=== PATIENT | female | born 1985 | race Caucasian/White ===

== ENCOUNTER 2018-01-07 08:00 | Outpatient (CLI) | payer OTHER | END 2018-01-07 08:01 | disposition home or self-care (01) | LOC: LAB.R 08:00 | PROVIDERS: ATTEND Registered Nurse | DX: Z11.3 Encounter for screening for infections with a predominantly sexual mode of transmission (principal) | CPT/HCPCS: 87491; 87591 ==

== ENCOUNTER 2018-02-24 09:39 | Outpatient (CLI) | payer OTHER ==
[2018-02-24 10:44] LABS: HB2 TOTAL 14.5 g/dL; HEMOGLOBIN A1C 0.41 g/dL; HEMOGLOBIN A1C % 4.7 % (4.6-6.2)
[2018-02-24 11:04] LABS: THYROID STIMULATING HORMONE 1.21 uIU/mL (0.34-5.60)
[2018-02-24 11:32] LABS: FOLLICLE STIMULATING HORMONE 3.38 mIU/mL
[2018-02-24 11:33] LABS: LUTEINIZING HORMONE 4.07 mIU/mL
[2018-02-25 10:22] LABS: ESTRADIOL 114 pg/mL
[2018-03-01 00:01] LABS: DHEA SULFATE 121 mcg/dL (23-266)
== END 2018-02-24 09:40 | disposition home or self-care (01) ==
LOC: LAB 09:39
PROVIDERS: ATTEND Registered Nurse
DX: N97.8 Female infertility of other origin (principal)
CPT/HCPCS: 36415; 81599; 82627; 82670; 83001; 83002; 83036; 84402; 84403; 84443

== ENCOUNTER 2018-03-23 15:16 | Outpatient (CLI) | payer OTHER | END 2018-03-23 15:17 | disposition home or self-care (01) | LOC: LAB 15:16 | PROVIDERS: ATTEND Registered Nurse | DX: N97.8 Female infertility of other origin (principal) | CPT/HCPCS: 36415; 84144 ==

== ENCOUNTER 2018-10-17 17:42 | Outpatient (CLI) | payer OTHER ==
--- NOTE | 2018-10-18 00:54 | Ultrasound Report ---
Reason: TEST POSITIVE Procedure Date: 10/17/2018 Accession Number: [id number] / [id number] Procedure: US - OB First Trimester CPT Code: FULL RESULT: EXAM: FIRST TRIMESTER OBSTETRIC ULTRASOUND (Less than 11 weeks) EXAM DATE: 10/17/2018 06:36 PM. CLINICAL HISTORY: test positive. LMP: 08/01/2018?. COMPARISONS: None. TECHNIQUE: Transabdominal and transvaginal ultrasound examination with static image documentation. CLINICAL DATES: EGA 11 weeks 0 days with DEVORA 05/08/2019 based on suggested LMP. ASSESSMENT: Gestational Sac: Single intrauterine. Mean gestational sac diameter: 17.6 mm = 6 weeks 1 day. Embryo: No pole visualized. Yolk sac: 4 mm. Amniotic fluid: Not accurately assessed at this gestational age. Early placenta: Not visible at this gestational age. Other: No perigestational fluid collection demonstrated. MATERNAL STRUCTURES: Uterus: Anteverted. Unremarkable. Cervix: Closed. Right Ovary/Adnexa: The ovary measures 4 x 2.3 x 3.1 cm, volume 14.6 cc. Unremarkable. Left Ovary/Adnexa: Not visualized. Free Fluid: None. Other: None. IMPRESSION: 1. Intrauterine gestational sac with no measurable pole. This may be due to early gestational age versus blighted ovum. Correlation with serial beta hCG and follow-up ultrasound in 10-14 days recommended. RADIA
== END 2018-10-17 17:43 | disposition home or self-care (01) ==
LOC: DI 17:42
PROVIDERS: ATTEND Obstetrics & Gynecology
DX: Z32.01 Encounter for pregnancy test, result positive (principal)
CPT/HCPCS: 76801

== ENCOUNTER 2018-10-31 17:35 | Outpatient (CLI) | payer OTHER | END 2018-10-31 17:36 | disposition home or self-care (01) | LOC: LAB 17:35 | PROVIDERS: ATTEND Obstetrics & Gynecology | DX: O36.80X0 Pregnancy with inconclusive fetal viability, not applicable or unspecified (principal) | CPT/HCPCS: 84702 ==

== ENCOUNTER 2018-11-18 10:00 | Outpatient (CLI) | payer OTHER ==
--- NOTE | 2018-11-18 11:24 | Ultrasound Report ---
Reason: UNCERTAIN VIABILITY OF Procedure Date: 11/18/2018 Accession Number: [id number] / [id number] Procedure: US - OB First Trimester CPT Code: FULL RESULT: EXAM: FIRST TRIMESTER OBSTETRIC ULTRASOUND (Less than 11 weeks) EXAM DATE: 11/18/2018 10:59 AM. CLINICAL HISTORY: Uncertain viability of . LMP: 08/01/2018. COMPARISONS: 10/17/2018. TECHNIQUE: Transabdominal and transvaginal ultrasound examination with static image documentation. CLINICAL DATES: EGA 10 weeks 3 days with DEVORA 06/13/2019 based on physician stated. ASSESSMENT: Gestational Sac: Single intrauterine. Mean gestational sac diameter: 58.5 mm = greater than 10 weeks. Embryo: CRL (crown-rump length) 42.6 mm = 11 weeks 1 day. Cardiac activity: 166 beats per minute. Yolk sac: 5.6 mm. Amniotic fluid: Subjectively normal. Early placenta: Posterior. Other: No perigestational fluid collection demonstrated. MATERNAL STRUCTURES: Uterus: Anteverted. Unremarkable. Cervix: Closed. Right Ovary/Adnexa: The ovary measures 3.4 x 2.3 x 3.0 cm, volume 12.2 cc. Contains a 1.7 cm unilocular cyst. Left Ovary/Adnexa: The ovary measures 2.8 x 1.4 x 2.7 cm, volume 5.5 cc. Unremarkable. Free Fluid: None. Other: None. IMPRESSION: 1. Single viable intrauterine at EGA 11 weeks 1 day with DEVORA 06/08/2019 based on crown-rump length, which is concordant with clinical dates and prior ultrasound. 2. Assigned dating is DEVORA 10 weeks 3 days based on physician stated. RADIA
== END 2018-11-18 10:01 | disposition home or self-care (01) ==
LOC: DI 10:00
PROVIDERS: ATTEND Obstetrics & Gynecology
DX: O36.80X0 Pregnancy with inconclusive fetal viability, not applicable or unspecified (principal); Z3A.11 11 weeks gestation of pregnancy
CPT/HCPCS: 76801

== ENCOUNTER 2018-11-22 18:00 | Outpatient (CLI) | payer OTHER ==
[2018-11-22 18:15] LABS: MUDS CUTOFF CONCENTRATIONS CUTOFF CONC BELOW:
[2018-11-22 18:35] LABS: BASOPHILS % (AUTO) 0.5 %; EOSINOPHILS # (AUTO) 0.1 10^3/uL (0.0-0.7); EOSINOPHILS % (AUTO) 1.3 %; HGB - HEMOGLOBIN 11.8 g/dL (12.0-16.0); LYMPHOCYTES # (AUTO) 1.7 10^3/uL (1.5-3.5); LYMPHOCYTES % (AUTO) 21.8 %; MEAN CORPUSCULAR HEMOGLOBIN 31.7 pg (27.0-31.0); MEAN CORPUSCULAR VOLUME 90.6 fL (81.0-99.0); MEAN PLATELET VOLUME 9.1 fL (7.9-10.8); MONOCYTES # (AUTO) 0.6 10^3/uL (0.0-1.0); MONOCYTES % (AUTO) 7.9 %; NEUTROPHILS # (AUTO) 5.4 10^3/uL (1.5-6.6); NEUTROPHILS % (AUTO) 68.5 %; PLT - PLATELET COUNT 207 10^3/uL (130-450); RED BLOOD COUNT 3.72 10^6/uL (4.20-5.40); RED CELL DISTRIBUTION WIDTH 12.5 % (12.0-15.0); WHITE BLOOD COUNT 7.9 x10^3/uL (4.8-10.8)
[2018-11-22 18:38] LABS: BILIRUBIN,URINE NEGATIVE (NEGATIVE); GLUCOSE, URINE (UA) NEGATIVE (NEGATIVE); KETONES,URINE (UA) 15 mg/dL (NEGATIVE); LEUKOCYTE ESTERASE, URINE NEGATIVE (NEGATIVE); NITRITE,URINE NEGATIVE (NEGATIVE); OCCULT BLOOD,URINE NEGATIVE (NEGATIVE); PROTEIN,URINE NEGATIVE (NEGATIVE); UROBILINOGEN,URINE 0.2 (NORMAL) E.U./dL (NORMAL)
[2018-11-22 18:42] LABS: CLARITY,URINE CLEAR (CLEAR)
[2018-11-22 18:45] LABS: BACTERIA,URINE Few /HPF (None Seen); RBC,URINE None Seen /HPF (0-5); SQUAMOUS EPITHELIAL CELL,UR MOD Squamous (<= Few)
[2018-11-22 18:57] LABS: AMPHETAMINE SCREEN,URINE NEGATIVE (NEGATIVE); BENZODIAZEPINES SCREEN, URINE NEGATIVE (NEGATIVE); COCAINE SCREEN URINE NEGATIVE (NEGATIVE); METHADONE SCREEN, URINE NEGATIVE (NEGATIVE); METHAMPHETAMINES SCREEN, URINE NEGATIVE (NEGATIVE); OPIATE SCREEN, URINE NEGATIVE (NEGATIVE); OXYCODONE SCREEN, URINE NEGATIVE (NEGATIVE); PROPOXYPHENE SCREEN, URINE NEGATIVE (NEGATIVE); TRICYCLIC ANTIDEPRESSANT,URINE NEGATIVE (NEGATIVE)
[2018-11-23 13:38] LABS: HEPATITIS B SURFACE ANTIGEN NON-REACTIVE (NON-REACTIVE); HEPATITIS C ANTIBODY NON-REACTIVE (NON-REACTIVE)
[2018-11-23 14:42] LABS: HIV AG/AB 4TH GEN NON-REACTIVE (NON-REACTIVE)
== END 2018-11-22 18:01 | disposition home or self-care (01) ==
LOC: LAB 18:00
PROVIDERS: ATTEND Obstetrics & Gynecology
DX: Z36.89 Encounter for other specified antenatal screening (principal); Z33.1 Pregnant state, incidental
CPT/HCPCS: 36415; 80306; 81001; 81599; 85025; 86592; 86762; 86787; 86803; 86850; 86900; 86901; 87086; 87340; 87389; 87491; 87591

== ENCOUNTER 2018-11-25 13:32 | Outpatient (CLI) | payer SELFPAY | END 2018-11-25 13:33 | disposition home or self-care (01) | LOC: LAB 13:32 | PROVIDERS: ATTEND Obstetrics & Gynecology | DX: Z36.89 Encounter for other specified antenatal screening (principal) | CPT/HCPCS: 36415 ==

== ENCOUNTER 2019-01-09 18:19 | Outpatient (CLI) | payer OTHER | END 2019-01-09 18:20 | disposition home or self-care (01) | LOC: LAB 18:19 | PROVIDERS: ATTEND Obstetrics & Gynecology | DX: Z36.0 Encounter for antenatal screening for chromosomal anomalies (principal) | CPT/HCPCS: 36415; 81599; 82105 ==

== ENCOUNTER 2019-01-20 13:21 | Outpatient (CLI) | payer OTHER ==
--- NOTE | 2019-01-23 14:41 | Ultrasound Report ---
Reason: SCREENING Procedure Date: 01/20/2019 Accession Number: [id number] / [id number] Procedure: US - OB Detailed Eval CPT Code: FULL RESULT: EXAM: COMPLETE OBSTETRICAL ULTRASOUND EXAM DATE: 01/20/2019 02:30 PM. CLINICAL HISTORY: anatomic survey. COMPARISON: OB FIRST TRIMESTER 11/18/2018 10:13 AM. TECHNIQUE: Real-time sonographic evaluation of the fetus performed by the cold press operator. Multiple customer service representative teacher static images were saved for review. DATING: Established EGA 20 weeks 2 days with DEVORA 06/07/2019 based on working due date. EGA 20 weeks 0 days with DEVORA 06/09/2019 based on the current ultrasound. GENERAL EVALUATION [place] . Cardiac activity: 148 bpm. movement: Visualized. Presentation: Transverse Placenta: Posterior position. No evidence for previa. Umbilical cord: 3 vessel cord. Central placental cord origin. Amniotic fluid: Subjectively normal. MVP 4.1 cm. BIOMETRY Bi-Parietal Diameter (BPD): 4.6 cm, 19 weeks 6 days Head Circumference (HC): 17.1 cm, 19 weeks 5 days Abdominal Circumference (AC): 15.2 cm, 20 weeks 3 days Femur Length (FL): 3.2 cm, 20 weeks 0 days Estimated Weight: 339 g, 41st percentile for 20 weeks 2 days. ANATOMY The intracranial structures, profile, face/nose/lips, spine, 4 chamber heart and outflow tracts, stomach, abdominal wall and cord insertion, diaphragm, kidneys, bladder, and extremities were visualized and demonstrate no abnormality. MATERNAL STRUCTURES Uterus: Unremarkable. Cervix: Long and closed. Transabdominal length 4.4 cm. Right ovary/adnexa: Unremarkable. Left ovary/adnexa: Unremarkable. Free fluid: None. IMPRESSION: 1. Portillo live intrauterine with gestational age 20 weeks 2 days based on working due date. 2. Estimated weight is within expected limits for assigned dating. 3. Normal anatomic survey. No anatomic abnormalities are detected at this time. RADIA
== END 2019-01-20 13:22 | disposition home or self-care (01) ==
LOC: DI 13:21
PROVIDERS: ATTEND Obstetrics & Gynecology
DX: Z36.89 Encounter for other specified antenatal screening (principal)
CPT/HCPCS: 76811

== ENCOUNTER 2019-02-23 09:31 | Outpatient (CLI) | payer OTHER ==
[2019-02-23 11:10] LABS: HGB - HEMOGLOBIN 11.5 g/dL (12.0-16.0); MEAN CORPUSCULAR HEMOGLOBIN 30.7 pg (27.0-31.0); MEAN CORPUSCULAR HGB CONC 32.3 g/dL (32.0-36.0); MEAN CORPUSCULAR VOLUME 95.2 fL (81.0-99.0); MEAN PLATELET VOLUME 10.4 fL (7.9-10.8); RED BLOOD COUNT 3.74 10^6/uL (4.20-5.40); RED CELL DISTRIBUTION WIDTH 12.7 % (12.0-15.0); WHITE BLOOD COUNT 8.4 x10^3/uL (4.8-10.8)
== END 2019-02-23 23:59 | disposition home or self-care (01) ==
LOC: LAB 09:31
PROVIDERS: ATTEND Obstetrics & Gynecology
DX: O09.92 Supervision of high risk pregnancy, unspecified, second trimester (principal)
CPT/HCPCS: 36415; 82950; 85027; 86850

== ENCOUNTER → 2019-05-10 | Outpatient (CLI) | payer OTHER ==
[2019-05-10 20:53] LABS: CANDIDA GROUP DNA POSITIVE (NEGATIVE); CANDIDA KRUSEI DNA NEGATIVE (NEGATIVE); TRICHOMONAS VAGINALIS DNA NEGATIVE (NEGATIVE)
[2019-05-10 21:49] LABS: TRICHOMONAS VAGINALIS DNA NEGATIVE (NEGATIVE)
== END ==
LOC: LAB.R 08:00
PROVIDERS: ATTEND Nurse Practitioner Obstetrics & Gynecology
DX: Z36.85 Encounter for antenatal screening for Streptococcus B (principal); Z11.3 Encounter for screening for infections with a predominantly sexual mode of transmission; N76.0 Acute vaginitis
CPT/HCPCS: 87491; 87591; 87661; 87797; 87801

== ENCOUNTER 2019-06-01 16:43 | Outpatient (CLI) | payer OTHER ==
--- NOTE | 2019-06-05 10:04 | Ultrasound Report ---
Reason: LARGE FOR GESTATIONAL AGE FETUS, 3RD TRIMESTER Procedure Date: 06/01/2019 Accession Number: [id number] / [id number] Procedure: US - OB F/U or Repeat CPT Code: FULL RESULT: EXAM: FOLLOW-UP OBSTETRICAL ULTRASOUND EXAM DATE: 06/01/2019 05:16 PM. CLINICAL HISTORY: LARGE FOR GESTATIONAL AGE FETUS, 3RD TRIMESTER. COMPARISON: 01/20/2019. TECHNIQUE: Real-time sonographic evaluation of the fetus performed by the rip/mould operator. Additional transvaginal imaging to more accurately evaluate cervical length/placental position/etc. Multiple telephone service representative static images were saved for review. DATING: Established EGA 39 weeks 1 day with DEVORA 06/07/2019 based on LMP. EGA 39 weeks 0 days with DEVORA 06/08/2019 based on prior ultrasound. EGA 37 weeks 5 days with DEVORA 06/17/2019 based on the current ultrasound. GENERAL EVALUATION [place] . Cardiac activity: 145 bpm. movement: Visualized. Presentation: Breech Placenta: Posterior position. Amniotic fluid: Normal. FIDENCIO 11.7 cm. MVP 4.1 cm. BIOMETRY Bi-Parietal Diameter (BPD): 9.4 cm, 38 weeks 3 days Head Circumference (HC): 36.2 cm, 38 weeks 6 days Abdominal Circumference (AC): 34.3 cm, 38 weeks 6 days Femur Length (FL): 7.2 cm, 36 weeks 4 days Estimated Weight: 3474 g, 57.7 percentile. ANATOMY Limited anatomic evaluation. MATERNAL STRUCTURES The cervix is closed with cervical length 5.3 cm IMPRESSION: 1. Portillo live intrauterine with gestational age 37 weeks 5 days based on current ultrasound. Fetus is in BREECH position. 2. Estimated weight is within expected limits for assigned dating. 3. On the previous 01/20/2019 examination, the DEVORA was 06/09/2019. The current DEVORA is 06/17/2019. SUZIE
== END 2019-06-01 16:44 | disposition home or self-care (01) ==
LOC: DI 16:43
PROVIDERS: ATTEND Obstetrics & Gynecology
DX: O36.63X0 Maternal care for excessive fetal growth, third trimester, not applicable or unspecified (principal); Z3A.37 37 weeks gestation of pregnancy
CPT/HCPCS: 76816

== ENCOUNTER 2019-06-07 04:58 | Inpatient (IN) | payer OTHER ==
[2019-06-07] MEDS ORDERED: SODIUM CHLORIDE FLUSH 0.9% 10 ML SYRINGE ONE (05:31)
[2019-06-07] MEDS ORDERED: CITRIC ACID/SODIUM CITRATE 15 ML UDC PO ONE (05:48)
[2019-06-07 05:56] LABS: BILIRUBIN,URINE NEGATIVE (NEGATIVE); GLUCOSE, URINE (UA) NEGATIVE (NEGATIVE); KETONES,URINE (UA) TRACE mg/dL (NEGATIVE); LEUKOCYTE ESTERASE, URINE NEGATIVE (NEGATIVE); NITRITE,URINE NEGATIVE (NEGATIVE); OCCULT BLOOD,URINE NEGATIVE (NEGATIVE); PROTEIN,URINE NEGATIVE (NEGATIVE); UROBILINOGEN,URINE 0.2 (NORMAL) E.U./dL (NORMAL)
[2019-06-07 05:57] LABS: CLARITY,URINE CLEAR (CLEAR)
[2019-06-07] MEDS ORDERED: SODIUM CHLORIDE FLUSH 0.9% 10 ML SYRINGE IVP PRN ×2 (05:59→09:20)
[2019-06-07] MEDS ORDERED: LACTATED RINGERS 1,000 ML IV SCH ×2 (06:00→10:00)
[2019-06-07] MEDS ORDERED: ceFAZolin 2 GM in SODIUM CHLORIDE 0.9% 100ML 100 ML IV SCH (06:00)
[2019-06-07 06:02] LABS: BACTERIA,URINE Few /HPF (None Seen); RBC,URINE None Seen /HPF (0-5); SQUAMOUS EPITHELIAL CELL,UR MOD Squamous (<= Few)
[2019-06-07 06:11] LABS: BASOPHILS % (AUTO) 0.2 %; EOSINOPHILS # (AUTO) 0.1 10^3/uL (0.0-0.7); HGB - HEMOGLOBIN 11.7 g/dL (12.0-16.0); LYMPHOCYTES # (AUTO) 1.7 10^3/uL (1.5-3.5); LYMPHOCYTES % (AUTO) 17.9 %; MEAN CORPUSCULAR HEMOGLOBIN 32.1 pg (27.0-31.0); MEAN CORPUSCULAR HGB CONC 34.8 g/dL (32.0-36.0); MEAN CORPUSCULAR VOLUME 92.1 fL (81.0-99.0); MEAN PLATELET VOLUME 9.8 fL (7.9-10.8); MONOCYTES # (AUTO) 0.6 10^3/uL (0.0-1.0); MONOCYTES % (AUTO) 6.7 %; NEUTROPHILS # (AUTO) 6.8 10^3/uL (1.5-6.6); NEUTROPHILS % (AUTO) 73.5 %; PLT - PLATELET COUNT 196 10^3/uL (130-450); RED BLOOD COUNT 3.65 10^6/uL (4.20-5.40); RED CELL DISTRIBUTION WIDTH 13.7 % (12.0-15.0); WHITE BLOOD COUNT 9.2 x10^3/uL (4.8-10.8)
[2019-06-07 06:18] LABS: PT - PROTHROMBIN TIME 11.9 secs (9.9-12.6)
[2019-06-07 06:25] LABS: PARTIAL THROMBOPLASTIN TIME 27.6 secs (24.9-33.3)
--- NOTE | 2019-06-07 07:19 | ANESTHESIA ---
Pre-Anesthesia VS, & Labs - Diagnosis breech presentation - Procedure section Vital Signs: Temp Pulse Resp BP Pulse Ox 36.6 C 80 16 124/69 100 06/07/19 06:53 06/07/19 06:53 06/07/19 06:53 06/07/19 06:53 06/07/19 06:53 Height 5 ft 4 in Weight (kg) 109.316 kg - NPO >8 hours - Is Patient ?: Yes - Lab Results Current Lab Results: Laboratory Tests 06/07/19 06:00: Blood Type A POSITIVE, Antibody Screen NEGATIVE 06/07/19 06:00: PT 11.9, INR 1.0, APTT 27.6 06/07/19 06:00: WBC 9.2, RBC 3.65 L, Hgb 11.7 L, Hct 33.6 L, MCV 92.1, MCH 32.1 H, MCHC 34.8, RDW 13.7, Plt Count 196, MPV 9.8, Neut # (Auto) 6.8 H, Lymph # (Auto) 1.7, [place] # (Auto) 0.6, Eos # (Auto) 0.1, Baso # (Auto) 0.0, Absolute Nucleated RBC 0.00, Nucleated RBC % 0.0 Lab results reviewed: Yes Fish Bones: 06/07/19 06:00 Home Medications and Allergies Active Medications Cefazolin Sodium 2 gm/ Sodium (Chloride) 100 mls @ 200 mls/hr IV ONCE TERRENCE Stop: 06/07/19 11:00 Lactated Ringer's (Lr) 1,000 mls @ 125 mls/hr IV .Q8H TERRENCE Last Admin: 06/07/19 06:10 Dose: 125 mls/hr Sodium Chloride (Normal Saline Flush 0.9%) 10 ml IVP PRN PRN PRN Reason: NEEDED PER PROVIDER ORDERS Allergies/Adverse Reactions: Allergies Allergy/AdvReac Type Severity Reaction Status Date / Time No Known Drug Allergies Allergy Verified 06/07/19 05:19 Anes History & Medical History - Anesthetic History Anesthesia Complications: reports: No previous complications Family history of Anesthesia Complications: Denies Family history of Malignant Hyperthermia: Denies - Medical History Cardiovascular: reports: None Pulmonary: reports: None Gastrointestinal: reports: GERD (occasional) Urinary: reports: None 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) Smoking Status: Never smoker - Surgical History Other Past Surgical History: eye surgery as a child for varicella on eye muscle Exam General: Alert, Oriented x3, Cooperative Dental: WNL Mouth Openin Fingerbreadth Neck Mobility: Normal Mallampati classification: II Respiratory: Lungs clear, Normal breath sounds, No respiratory distress Cardiovascular: Regular rate Neurological: Normal speech Mental/Cognitive Status: Alert/Oriented X3, Normal for patient Cognitive Status: Within normal limits Plan Anesthesia Type: Spinal Consent for Procedure(s) Verified and Reviewed: Yes Code Status: Attempt Resuscitation ASA classification: 2-Mild systemic disease Is this case an emergency?: No
[2019-06-07] MEDS ORDERED: LACTATED RINGERS 1,000 ML IV ONE ×2 (08:11→08:12)
[2019-06-07] MEDS ORDERED: ONDANSETRON 4 MG/2 ML VIAL IVP PRN (09:20)
[2019-06-07] MEDS ORDERED: oxyCODONE 5 MG TABLET PO PRN (09:20)
[2019-06-07] MEDS ORDERED: OXYTOCIN/DEXTROSE 5 % 30 UNIT/500 ML BAG IV PRN (09:20)
[2019-06-07 09:44] LABS: BASOPHILS % (AUTO) 0.2 %; EOSINOPHILS # (AUTO) 0.1 10^3/uL (0.0-0.7); EOSINOPHILS % (AUTO) 0.5 %; HGB - HEMOGLOBIN 10.9 g/dL (12.0-16.0); LYMPHOCYTES # (AUTO) 1.1 10^3/uL (1.5-3.5); LYMPHOCYTES % (AUTO) 11.3 %; MEAN CORPUSCULAR HEMOGLOBIN 30.8 pg (27.0-31.0); MEAN CORPUSCULAR VOLUME 93.2 fL (81.0-99.0); MONOCYTES # (AUTO) 0.5 10^3/uL (0.0-1.0); MONOCYTES % (AUTO) 5.5 %; NEUTROPHILS # (AUTO) 7.7 10^3/uL (1.5-6.6); NEUTROPHILS % (AUTO) 81.9 %; PLT - PLATELET COUNT 184 10^3/uL (130-450); RED BLOOD COUNT 3.54 10^6/uL (4.20-5.40); RED CELL DISTRIBUTION WIDTH 14.1 % (12.0-15.0); WHITE BLOOD COUNT 9.5 x10^3/uL (4.8-10.8)
--- NOTE | 2019-06-07 10:22 | OPERATIVE REPORT ---
DATE OF SERVICE: 06/07/2019 Physician: Cristhian Hoffman DO PREOPERATIVE DIAGNOSES 1. Intrauterine at 40 weeks gestation, breech presentation. POSTOPERATIVE DIAGNOSES 1. Intrauterine at 40 weeks gestation. 2. Delivery at 40 weeks' gestation, cephalic presentation. OPERATION PERFORMED: Primary section with low transverse incision. SURGEON: Cristhian Hoffman DO PRODUCT MARKETING EXECUTIVE: Jacque Alonso MD, who assisted in draping, retraction and suturing as well as surgical expertise. ANESTHESIA: Spinal. ESTIMATED BLOOD LOSS: 300 mL WOUND CLASSIFICATION: 2. COUNTS: Sponge count, needle count were correct. INDICATIONS: For the clinical history, please see H and P. SURGICAL FINDINGS: The ovaries and fallopian tubes bilaterally were unremarkable. The uterus was gravid. The fetus was found to be in a cephalic presentation at the time of surgery. PROCEDURE: The patient was taken to the operative suite, placed on the surgical table in the supine position. Under spinal anesthetic, a rolled blanket was placed under the right hip and the patient was then prepped and draped in the usual fashion. A timeout then took place. A Pfannenstiel incision was then made with sharp dissection through the skin. Both sharp and blunt dissection were then used to the level of fascia. The fascia was then incised in a curvilinear fashion laterally. The rectus musculature was then dissected free from the overlying rectus fascia with electrocautery and sharp dissection. A central muscle split then took place. The peritoneum was entered with a double hemostat technique. The peritoneum was then entered vertically. A bladder blade was placed in the lower pole of the incision to protect the bladder. The serosa overlying the lower uterine segment was now incised transversely. The myometrium was then scored with a scalpel blade and the amniotic cavity entered with blunt dissection. This revealed clear fluid. Bandage scissors were then used to make a transverse incision lower uterine segment. Using the surgeon's fingers inside of the uterus to guide them. As is noted above, the fetus was in cephalic presentation. The bladder blade was removed from the abdomen and the surgeon's hand placed into the amniotic cavity and elevated the head through. The communications assistant then gave gentle fundal pressure and the fetus then delivered with gentle traction and the gentle fundal pressure. Upon full delivery of the oropharynx and nasopharynx were copiously aspirated with bulb syringe. The was gurgling at that time. The cord was doubly clamped and cut and the was passed off to waiting nursing personnel in attendance. is a viable female whose weight is pending at present time. She had scores of 9 and 10 at 1 and 5 minutes, respectively. She was cleaned and then brought up to be placed on the mother's chest. A sample of cord blood was then obtained and sent for evaluation. The rest of the placenta was then delivered intact with 3 vessels. Upon delivery of the placenta, the uterus was then extra peritonealized and the myometrial cavity explored for any retained products of conception. None were noted. The myometrium was then reapproximated using 0 chromic suture in a running interlocking fashion. A second layer of 0 chromic suture was used in a running simple fashion to imbricate the first layer. There was a small hematoma that began forming on the serosa in the midline on the superior portion of the incision. This was rendered hemostatic with 2 [id number] sutures of 0 chromic suture. The uterus was then allowed to return to its anatomic position within the abdominal cavity. The paracolic gutters were then cleared of all blood clots and debris. The myometrial incision was then viewed for any signs of bleeding, none were noted. Hemostasis was assured. The hematoma, which had not grown at all, was still small and intact. The rectus musculature was then brought to the midline with interrupted sutures of 0 chromic suture, and hemostasis followed. The fascia was then reapproximated using 0 Vicryl suture in a running simple fashion. Hemostasis followed. The skin was closed in a running subcuticular suture using 4-0 Monocryl suture and hemostasis followed. Steri-Strips were placed and sterile dressing was placed and the patient was taken to recovery room in stable condition. TD: 06/07/2019 09:21 ABBY
[2019-06-07] MEDS: IBUPROFEN 600 MG TABLET PO SCH ×3 (11:05→22:08)
[2019-06-07] MEDS: SIMETHICONE CHEW 80 MG TABLET PO PRN ×2 (12:03→18:26)
[2019-06-07] MEDS: ACETAMINOPHEN 500 MG TABLET PO PRN ×2 (12:34→20:45)
[2019-06-07] MEDS ORDERED: SODIUM CHLORIDE FLUSH 0.9% 10 ML SYRINGE IVP SCH (17:00)
[2019-06-08] MEDS: IBUPROFEN 600 MG TABLET PO SCH ×3 (04:09→17:57)
[2019-06-08] MEDS: ACETAMINOPHEN 500 MG TABLET PO PRN ×3 (04:24→21:08)
--- NOTE | 2019-06-08 08:34 | PROVIDER PROGRESS NOTE ---
Subjective - General Admit Date: 06/07/19 - Other Other Information/Narrative: Patient is doing exceptionally well this morning. She is ambulating well, tolerating diet well. She is voiding without difficulty. She is passing flatus. Lochia is light to nonexistent at most.She is breast-feeding without problem. Objective - Patient Data Vital Signs: Vital Signs x48h Temp Pulse Resp BP Pulse Ox 06/08/19 08:17 36.5 C 68 16 107/62 98 06/08/19 03:57 37.4 C 68 18 98/42 L 95 06/08/19 02:15 18 06/08/19 01:15 20 Weight: Weight 06/06/19 06/07/19 06/08/19 23:59 23:59 23:59 Weight (kg) 109.316 kg Intake & Output: Intake and Output Totals x24h 06/06/19 06/07/19 06/08/19 23:59 23:59 23:59 Intake Total 4650.000 1050 Output Total 530 1850 Balance 4120.000 -800 - Lab Results Lab Results: 06/07/19 09:40 Other Lab Results: Lab Results x24hrs 06/07/19 Range/Units 09:40 WBC 9.5 (4.8-10.8) x10^3/uL RBC 3.54 L (4.20-5.40) 10^6/uL Hgb 10.9 L (12.0-16.0) g/dL Hct 33.0 L (37.0-47.0) % MCV 93.2 (81.0-99.0) fL MCH 30.8 (27.0-31.0) pg MCHC 33.0 (32.0-36.0) g/dL RDW 14.1 (12.0-15.0) % Plt Count 184 (130-450) 10^3/uL MPV 10.0 (7.9-10.8) fL Neut # (Auto) 7.7 H (1.5-6.6) 10^3/uL Lymph # (Auto) 1.1 L (1.5-3.5) 10^3/uL [place] # (Auto) 0.5 (0.0-1.0) 10^3/uL Eos # (Auto) 0.1 (0.0-0.7) 10^3/uL Baso # (Auto) 0.0 (0.0-0.1) 10^3/uL Absolute Nucleated RBC 0.00 x10^3/uL Nucleated RBC % 0.0 /100WBC - Current Medications Current Medications: Current Medications Generic Name Dose Route Start Last Admin Trade Name Freq PRN Reason Stop Dose Admin Acetaminophen 1,000 mg 06/07/19 11:56 06/08/19 04:24 Tylenol PO 1,000 mg Q8HR PRN Administration Pain or Fever > 38C (100.4F) Ibuprofen 600 mg 06/07/19 10:00 06/08/19 04:09 Motrin PO 06/08/19 09:59 600 mg Q6H TERRENCE Administration Simethicone 80 mg 06/07/19 09:20 06/07/19 18:26 Mylicon PO 80 mg TID PRN Administration Gas - Physical Exam Comments/Other: Laboratory Tests 06/07/19 06/07/19 06/07/19 05:05 06:00 06:00 WBC 9.2 RBC 3.65 L Hgb 11.7 L Hct 33.6 L MCV 92.1 MCH 32.1 H MCHC 34.8 RDW 13.7 Plt Count 196 MPV 9.8 Neut # (Auto) 6.8 H Lymph # (Auto) 1.7 [place] # (Auto) 0.6 Eos # (Auto) 0.1 Baso # (Auto) 0.0 Absolute Nucleated RBC 0.00 Nucleated RBC % 0.0 PT 11.9 INR 1.0 APTT 27.6 Urine Color YELLOW Urine Clarity CLEAR Urine pH 6.0 Ur Specific [place] 1.010 Urine Protein NEGATIVE Urine Glucose (UA) NEGATIVE Urine Ketones TRACE Urine Occult Blood NEGATIVE Urine Nitrite NEGATIVE Urine Bilirubin NEGATIVE Urine Urobilinogen 0.2 (NORMAL) Ur Leukocyte Esterase NEGATIVE Urine RBC None Seen Urine WBC 0-3 Ur Squamous Epith Cells MOD Squamous H Urine Bacteria Few Urine Culture Comments NOT INDICATED Blood Type Antibody Screen 06/07/19 06/07/19 06:00 09:40 WBC 9.5 RBC 3.54 L Hgb 10.9 L Hct 33.0 L MCV 93.2 MCH 30.8 MCHC 33.0 RDW 14.1 Plt Count 184 MPV 10.0 Neut # (Auto) 7.7 H Lymph # (Auto) 1.1 L [place] # (Auto) 0.5 Eos # (Auto) 0.1 Baso # (Auto) 0.0 Absolute Nucleated RBC 0.00 Nucleated RBC % 0.0 PT INR APTT Urine Color Urine Clarity Urine pH Ur Specific [place] Urine Protein Urine Glucose (UA) Urine Ketones Urine Occult Blood Urine Nitrite Urine Bilirubin Urine Urobilinogen Ur Leukocyte Esterase Urine RBC Urine WBC Ur Squamous Epith Cells Urine Bacteria Urine Culture Comments Blood Type A POSITIVE Antibody Screen NEGATIVE Lungs: Lungs are clear to auscultation bilaterally without wheezes, rales or Rhonchi. Heart: Heart has a regular rate and rhythm without murmur Abdomen: The abdomen is soft, pliable and nontender. The uterus is firm and nontender approximately 2 fingerbreadths below the umbilicus. Normoactive bowel sounds are appreciated. Incision: The incision is clean and dry without any signs of infection. It is well approximated. The Steri-Strips are in place. Impression/Plan - Problem List Problem List: Postop day/ day #1-stable Plan:We will discontinue the patient's saline lock and all IV medications. She will continue with ambulation. She may take a shower today. We will discontinue her SCDs since she is up and moving well.Discharge is anticipated tomorrow.
[2019-06-08] MEDS: SIMETHICONE CHEW 80 MG TABLET PO PRN ×3 (09:45→17:57)
[2019-06-09] MEDS: IBUPROFEN 600 MG TABLET PO SCH ×3 (00:18→11:25)
[2019-06-09] MEDS: SIMETHICONE CHEW 80 MG TABLET PO PRN (03:42)
[2019-06-09] MEDS: ACETAMINOPHEN 500 MG TABLET PO PRN ×2 (05:28→13:28)
--- NOTE | 2019-06-09 07:55 | PROVIDER PROGRESS NOTE ---
Subjective - General Admit Date: 06/07/19 - Other Other Information/Narrative: The patient continues to do very well today. She is ambulating well and tolerating diet well. She had a bowel movement this morning. She is voiding without difficulty. She is breast-feeding without difficulty. Lochia is light. She would like to be discharged home today. Objective - Patient Data Vital Signs: Vital Signs x48h Temp Pulse Resp BP Pulse Ox 06/09/19 05:31 36.7 C 74 16 103/70 96 06/09/19 00:17 36.6 C 57 L 16 101/70 98 Weight: Weight 06/07/19 06/08/19 06/09/19 23:59 23:59 23:59 Weight (kg) 109.316 kg Intake & Output: Intake and Output Totals x24h 06/07/19 06/08/19 06/09/19 23:59 23:59 23:59 Intake Total 4650.000 1050 Output Total 530 2000 Balance 4120.000 -950 - Lab Results Lab Results: 06/07/19 09:40 - Current Medications Current Medications: Current Medications Generic Name Dose Route Start Last Admin Trade Name Freq PRN Reason Stop Dose Admin Acetaminophen 1,000 mg 06/07/19 11:56 06/09/19 05:28 Tylenol PO 1,000 mg Q8HR PRN Administration Pain or Fever > 38C (100.4F) Ibuprofen 600 mg 06/08/19 18:00 06/09/19 05:28 Motrin PO 600 mg Q6HR TERRENCE Administration Simethicone 80 mg 06/07/19 09:20 06/09/19 03:42 Mylicon PO 80 mg TID PRN Administration Gas - Physical Exam Comments/Other: Laboratory Tests 06/07/19 06/07/19 06/07/19 05:05 06:00 06:00 WBC 9.2 RBC 3.65 L Hgb 11.7 L Hct 33.6 L MCV 92.1 MCH 32.1 H MCHC 34.8 RDW 13.7 Plt Count 196 MPV 9.8 Neut # (Auto) 6.8 H Lymph # (Auto) 1.7 [place] # (Auto) 0.6 Eos # (Auto) 0.1 Baso # (Auto) 0.0 Absolute Nucleated RBC 0.00 Nucleated RBC % 0.0 PT 11.9 INR 1.0 APTT 27.6 Urine Color YELLOW Urine Clarity CLEAR Urine pH 6.0 Ur Specific [place] 1.010 Urine Protein NEGATIVE Urine Glucose (UA) NEGATIVE Urine Ketones TRACE Urine Occult Blood NEGATIVE Urine Nitrite NEGATIVE Urine Bilirubin NEGATIVE Urine Urobilinogen 0.2 (NORMAL) Ur Leukocyte Esterase NEGATIVE Urine RBC None Seen Urine WBC 0-3 Ur Squamous Epith Cells MOD Squamous H Urine Bacteria Few Urine Culture Comments NOT INDICATED Blood Type Antibody Screen 06/07/19 06/07/19 06:00 09:40 WBC 9.5 RBC 3.54 L Hgb 10.9 L Hct 33.0 L MCV 93.2 MCH 30.8 MCHC 33.0 RDW 14.1 Plt Count 184 MPV 10.0 Neut # (Auto) 7.7 H Lymph # (Auto) 1.1 L [place] # (Auto) 0.5 Eos # (Auto) 0.1 Baso # (Auto) 0.0 Absolute Nucleated RBC 0.00 Nucleated RBC % 0.0 PT INR APTT Urine Color Urine Clarity Urine pH Ur Specific [place] Urine Protein Urine Glucose (UA) Urine Ketones Urine Occult Blood Urine Nitrite Urine Bilirubin Urine Urobilinogen Ur Leukocyte Esterase Urine RBC Urine WBC Ur Squamous Epith Cells Urine Bacteria Urine Culture Comments Blood Type A POSITIVE Antibody Screen NEGATIVE Lungs: The lungs are clear to auscultation bilaterally without wheezes, rales or rhonchi. Heart: The heart has a regular rate and rhythm without murmur Abdomen: The abdomen is soft, pliable and nontender. The uterus is firm and nontender 2 fingerbreadths below the umbilicus.Normoactive bowel sounds are appreciated. Incision: Incision is clean and dry without infection. It is well approximated. The Steri-Strips are intact and in place. Impression/Plan - Problem List Problem List: Postop/ day #2: Stable Plan: We will allow the patient to be discharged home today. She was discharged home with both written and verbal instructions which include included such things as: 1. She is to forego any lifting, tampons, douching or intercourse 2. She is to report any temperatures greater than 100.4, drainage from the incision site or vaginal bleeding that is cy to hemorrhage 3. She does not drive a car for the next 2 weeks 4. She is to increase her fluids and continue her vitamins 5. She will use ibuprofen 600 mg p.o. 3 times daily as needed is her first line of pain control 6. She was given a prescription for hydrocodone/acetaminophen 5/325 #20 no refills 1 p.o. every 4 hours as needed pain. She will use this to supplement the ibuprofen 7. She will leave the Steri-Strips on for the next week. She will take them off at that time.While the round she can take a shower after they come off she may take a tub bath. 8. As long as she does well we will see her in the office in 1 week for her initial visit. We will see her in 6 weeks for full visit. She will call sooner if she has problems.
--- NOTE | 2019-06-09 08:19 | DISCHARGE SUMMARY ---
Physician: Cristhian Hoffman DO DATE OF ADMISSION: 06/07/2019 DATE OF DISCHARGE: 06/09/2019 ADMITTING DIAGNOSES 1. Intrauterine at 40 weeks' gestation. 2. Breech presentation. DISCHARGE DIAGNOSES 1. Delivery at 40 weeks' gestation. 2. Cephalic presentation. PROCEDURE: Primary section with low transverse incision. LABORATORIES: CBC postoperatively revealed WBCs at 3.54, hemoglobin 10.9, hematocrit 33.0 with 184 platelets. HOSPITAL COURSE: The patient was admitted to [facility] for a section after an ultrasound had stated that the fetus was in the breech position. The ultrasound had been obtained just a few days before the section. The patient had been admitted for scheduled . An IV was begun. She was given prophylactic antibiotics and taken to surgery, where the above said procedure was done. The fetus was found at that time to be in the cephalic position at delivery. One is referred to the operative note for full details. She was taken back to her room in satisfactory condition. She actually recovered very nicely throughout the day. By the late afternoon, she was ambulating well and tolerating diet well. By the a.m., her Rodney catheter had been discontinued. She again was ambulating well and tolerating diet well. She was without difficulty. She was starting to pass flatus. Her IV and IV medications were now discontinued. The patient showered and continued to do very well throughout the day. On her second , postop day, she continued to do quite well. Vital signs were stable. She was afebrile. The incision was clean and dry without any signs of infection. Her lungs were clear. Heart had a regular rate and rhythm. The uterus was firm and nontender, 2 fingerbreadths below the umbilicus. It was felt that the patient was stable and could be discharged to home. She was discharged home. Both written and verbal instructions included such things as: 1. She should forego any lifting, tampons, douching or intercourse. 2. She is to report any temperature greater 100.4 heavy vaginal bleeding that was like a hemorrhage or if the incision begins to look like it is becoming infected. 3. She is to increase her fluids and continue her vitamins. 4. She is not to drive a car for the next 2 weeks. 5. She is to leave the Steri-Strips on for the next week, after that she may take them off. Prior to them coming off, she may take a shower; after they come off she may take a tub bath. 6. She will use ibuprofen 600 mg p.o. t.i.d. as her first line of pain control. She will use this on a p.r.n. basis. 7. She was given a prescription for hydrocodone/acetaminophen 5/325 one p.o. q.4 hours p.r.n. pain, #20, no refills. She will use this to supplement the ibuprofen. 8. As long as she does well, she will be seen in the office in 1 week for her initial check and in 6 weeks for a full check. She will call sooner, however, if she has problems. TD: 06/09/2019 08:06 ABBY
[2019-06-09 08:30] VITALS: BP 115/58
[2019-06-09] MEDS ORDERED: DOCUSATE SODIUM 100 MG CAPSULE PO SCH (09:00)
== END 2019-06-09 15:00 | disposition home or self-care (01) | DRG 788 ==
LOC: FBP 04:58
PROVIDERS: ADMIT Obstetrics & Gynecology; ATTEND Obstetrics & Gynecology
PROC: 10D00Z1 Extraction of Products of Conception, Low, Open Approach (ICD-10-PCS; principal; 2019-06-07 07:30)
DX: O99.12 Other diseases of the blood and blood-forming organs and certain disorders involving the immune mechanism complicating childbirth (principal); Z3A.39 39 weeks gestation of pregnancy; Z37.0 Single live birth; Z79.82 Long term (current) use of aspirin
CPT/HCPCS: 36415; 81001; 85025; 85610; 85730; 86850; 86900; 86901; A9270; J7120; 87086

== ENCOUNTER 2020-02-13 13:17 | Outpatient (CLI) | payer OTHER ==
--- NOTE | 2020-02-13 16:53 | XRAY Report ---
Reason: BACK PAIN Procedure Date: 02/13/2020 Accession Number: [id number] / [id number] Procedure: XR - Lumbar Spine Complete CPT Code: Final Report FULL RESULT: PROCEDURE: Lumbar Spine Complete INDICATIONS: BACK PAIN TECHNIQUE: 5 views of the lumbar spine were acquired. COMPARISON: None. FINDINGS: Bones: 5 [id number] vertebrae are present. Partial bony union at L3-4 level is seen. Straightening of normal lumbar lordosis is noted. No vertebral body compression fractures. No suspicious bony lesions. Oblique views shows no gross pars intraarticularis defects or significant bony foraminal stenosis. Soft tissues: Overlying bowel gas pattern is normal. No suspicious soft tissue calcifications. 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 No acute lumbar spine fracture or dislocation. No gross pars defect or significant bony foraminal stenosis. Reviewed by: Romaine Huynh MD on 02/13/2020 4:51 PM PDT Approved by: Romaine Huynh MD on 02/13/2020 4:51 PM PDT Station ID: [id number]
== END 2020-02-13 13:18 | disposition home or self-care (01) ==
LOC: DI 13:17
PROVIDERS: ATTEND Nurse Practitioner Family
DX: M54.9 Dorsalgia, unspecified (principal); M43.27 Fusion of spine, lumbosacral region
CPT/HCPCS: 72110

== ENCOUNTER 2020-05-21 08:00 | Outpatient (CLI) | payer OTHER ==
[2020-05-21 20:12] LABS: BILIRUBIN,URINE NEGATIVE (NEGATIVE); GLUCOSE, URINE (UA) NEGATIVE (NEGATIVE); KETONES,URINE (UA) NEGATIVE (NEGATIVE); LEUKOCYTE ESTERASE, URINE LARGE (NEGATIVE); NITRITE,URINE NEGATIVE (NEGATIVE); OCCULT BLOOD,URINE SMALL (NEGATIVE); PROTEIN,URINE NEGATIVE (NEGATIVE); UROBILINOGEN,URINE 0.2 (NORMAL) E.U./dL (NORMAL)
[2020-05-21 20:18] LABS: CLARITY,URINE CLEAR (CLEAR)
[2020-05-21 20:19] LABS: BACTERIA,URINE Moderate /HPF (None Seen); RBC,URINE 0-5 /HPF (0-5); SQUAMOUS EPITHELIAL CELL,UR NONE SEEN (<= Few); WBC CLUMPS,URINE PRESENT
== END 2020-05-21 23:59 | disposition home or self-care (01) ==
LOC: LAB.R 08:00
PROVIDERS: ATTEND Emergency Medicine
DX: N39.0 Urinary tract infection, site not specified (principal)
CPT/HCPCS: 81001; 87077; 87086; 87181

== ENCOUNTER 2020-06-05 16:15 | Outpatient (CLI) | payer OTHER ==
[2020-06-06 12:51] LABS: BILIRUBIN,URINE NEGATIVE (NEGATIVE); GLUCOSE, URINE (UA) NEGATIVE (NEGATIVE); KETONES,URINE (UA) NEGATIVE (NEGATIVE); LEUKOCYTE ESTERASE, URINE NEGATIVE (NEGATIVE); NITRITE,URINE NEGATIVE (NEGATIVE); OCCULT BLOOD,URINE NEGATIVE (NEGATIVE); PH,URINE 7.5 PH (5.0-7.5); PROTEIN,URINE NEGATIVE (NEGATIVE); UROBILINOGEN,URINE 0.2 (NORMAL) E.U./dL (NORMAL)
[2020-06-06 13:00] LABS: CLARITY,URINE CLEAR (CLEAR)
[2020-06-06 13:04] LABS: BACTERIA,URINE Rare /HPF (None Seen); RBC,URINE 0-5 /HPF (0-5); SQUAMOUS EPITHELIAL CELL,UR RARE Squamous (<= Few)
[2020-06-06 22:43] LABS: CANDIDA GROUP DNA POSITIVE (NEGATIVE); CANDIDA KRUSEI DNA NEGATIVE (NEGATIVE); TRICHOMONAS VAGINALIS DNA NEGATIVE (NEGATIVE)
== END 2020-06-05 23:59 | disposition home or self-care (01) ==
LOC: LAB.R 16:15
PROVIDERS: ATTEND Nurse Practitioner Obstetrics & Gynecology
DX: N39.0 Urinary tract infection, site not specified (principal); N76.0 Acute vaginitis
CPT/HCPCS: 81001; 87086; 87661; 87801

== ENCOUNTER 2020-09-13 08:00 | Outpatient (CLI) | payer OTHER | END 2020-09-13 23:59 | disposition home or self-care (01) | LOC: LAB.R 08:00 | PROVIDERS: ATTEND Family Medicine | DX: N39.0 Urinary tract infection, site not specified (principal) | CPT/HCPCS: 87086 ==

== ENCOUNTER 2020-10-29 07:00 | Outpatient (CLI) | payer OTHER ==
--- NOTE | 2020-10-29 10:29 | XRAY Report ---
PROCEDURE: Abdomen 1 View X-Ray INDICATIONS: ABDOMINAL PX TECHNIQUE: 2 supine AP views of the abdomen were acquired. COMPARISON: None. FINDINGS: Surgical changes and devices: None. Bowel: No pneumoperitoneum. The bowel gas pattern is normal. Mild to moderate amount of stool is se en within the left colon. Soft tissues: No masses; visualized solid organ contours appear normal in size. No suspicious abdom inal calcifications. Bones: No suspicious bony abnormalities. IMPRESSION: Nonobstructive bowel gas pattern. Mild to moderate amount of stool in the left colon. Reviewed by: Bill Diaz MD on 10/29/2020 10:27 AM [facility] Approved by: Bill Diaz MD on 10/29/2020 10:27 AM [facility] Station ID: [id number]
== END 2020-10-29 23:59 | disposition home or self-care (01) ==
LOC: DI.N 07:00
PROVIDERS: ATTEND Nurse Practitioner
DX: K59.00 Constipation, unspecified (principal)

== ENCOUNTER 2021-07-24 08:00 | Outpatient (CLI) | payer OTHER ==
[2021-07-24 18:06] LABS: HCG UR QUAL NEGATIVE
[2021-07-24 20:22] LABS: BACTERIAL VAGINOSIS DNA NEGATIVE (NEGATIVE); CANDIDA GLABRATA DNA NEGATIVE (NEGATIVE); CANDIDA GROUP DNA POSITIVE (NEGATIVE); CANDIDA KRUSEI DNA NEGATIVE (NEGATIVE); TRICHOMONAS VAGINALIS DNA NEGATIVE (NEGATIVE)
== END 2021-07-24 23:59 | disposition home or self-care (01) ==
LOC: LAB.N 08:00
PROVIDERS: ATTEND Nurse Practitioner
DX: N89.8 Other specified noninflammatory disorders of vagina (principal)
CPT/HCPCS: 81025; 87086; 87661; 87801

== ENCOUNTER 2021-11-13 08:00 | Outpatient (CLI) | payer OTHER ==
[2021-11-13 22:06] LABS: BACTERIAL VAGINOSIS DNA POSITIVE (NEGATIVE); CANDIDA GLABRATA DNA NEGATIVE (NEGATIVE); CANDIDA GROUP DNA POSITIVE (NEGATIVE); CANDIDA KRUSEI DNA NEGATIVE (NEGATIVE); TRICHOMONAS VAGINALIS DNA NEGATIVE (NEGATIVE)
== END 2021-11-13 23:59 | disposition home or self-care (01) ==
LOC: LAB.N 08:00
PROVIDERS: ATTEND Family Medicine
DX: N89.8 Other specified noninflammatory disorders of vagina (principal)
CPT/HCPCS: 87661; 87801

== ENCOUNTER 2022-03-01 08:00 | Outpatient (CLI) | payer OTHER ==
[2022-03-01 21:34] LABS: BACTERIAL VAGINOSIS DNA NEGATIVE (NEGATIVE); CANDIDA GLABRATA DNA NEGATIVE (NEGATIVE); CANDIDA GROUP DNA POSITIVE (NEGATIVE); CANDIDA KRUSEI DNA NEGATIVE (NEGATIVE); TRICHOMONAS VAGINALIS DNA NEGATIVE (NEGATIVE)
[2022-03-01 22:48] LABS: CHLAMYDIA TRACHOMATIS DNA NEGATIVE (NEGATIVE); NEISSERIA GONORRHOEAE DNA NEGATIVE (NEGATIVE)
== END 2022-03-01 23:59 | disposition home or self-care (01) ==
LOC: LAB.N 08:00
PROVIDERS: ATTEND Physician Assistant
DX: N89.8 Other specified noninflammatory disorders of vagina (principal)
CPT/HCPCS: 81514; 87491; 87591; 87661